=== PATIENT | female | born 1995 | race Caucasian/White ===

== ENCOUNTER 2019-02-24 21:49 | Emergency (ER) | payer BC ==
--- NOTE | 2019-02-24 23:47 | ED ---
Abdominal Pain/Female - HPI Summary HPI Summary: Patient with history of endometriosis complains of vaginal bleeding, clots and lower abdominal cramping 2 weeks. Patient states symptoms are similar to prior episodes of endometriosis but are more intense this time. Patient denies fever, cough, sore throat, CP, SOB, N/V/D, change in urine, change in BM, vaginal pain. Abdominal surgical history is none. Medical history is endometriosis. - History of Current Complaint Chief Complaint: EDVaginalBleeding Stated Complaint: HEAVY BLEEDING/CRAMPING PER PT Time Seen by Provider: 02/24/19 23:30 Hx Obtained From: Patient Onset/Duration: Gradual Onset, Lasting Weeks Timing: Intermittent Episode Lasting Severity Initially: Severe Severity Currently: Severe Pain Intensity: 8 Pain Scale Used: 0-10 Numeric Location: Discrete At: RLQ, Discrete At: LLQ, Suprapubic Radiates: No Character: Burning Aggravating Factor(s): Nothing Alleviating Factor(s): OTC Analgesics Associated Signs and Symptoms: Positive: Vaginal Bleeding Allergies/Adverse Reactions: Allergies Allergy/AdvReac Type Severity Reaction Status Date / Time ibuprofen Allergy Bleeding Verified 02/24/19 21:53 Home Medications: Home Medications Ketorolac TAB * [Toradol TAB *] 25 mg PO DAILY PRN 02/24/19 [History Confirmed 02/24/19] Omeprazole 20 mg PO BID PRN 02/24/19 [History Confirmed 02/24/19] traZODone TAB* [Desyrel TAB*] 100 mg PO BEDTIME 02/24/19 [History Confirmed ] PMH/Surg Hx/FS Hx/Imm Hx Endocrine/Hematology History: Denies: Hx Anticoagulant Therapy Cardiovascular History: Denies: Hx Pacemaker/ICD History: Denies: Hx Dialysis Sensory History: Denies: Hx Eye Prosthesis Opthamlomology History: Denies: Hx Legally Blind EENT History: Denies: Hx Deafness Neurological History: Denies: Hx Dementia Infectious Disease History: No Infectious Disease History: Denies: Traveled Outside the [place] in Last 30 Days - Family History Known Family History: Positive: Non-Contributory - Social History Alcohol Use: Occasionally Hx Substance Use: No Hx Tobacco Use: No Review of Systems Constitutional: Negative Eyes: Negative ENT: Negative Cardiovascular: Negative Respiratory: Negative Positive: Abdominal Pain Genitourinary: Negative Musculoskeletal: Negative Skin: Negative Neurological: Negative Psychological: Normal All Other Systems Reviewed And Are Negative: Yes Physical Exam - Summary Physical Exam Summary: Tenderness to palpation along left lower quadrant, suprapubic area and right lower quadrant. Abdominal exam otherwise unremarkable. Triage Information Reviewed: Yes Vital Signs On Initial Exam: Initial Vitals Temp Pulse Resp BP Pulse Ox 98.2 F 92 18 140/97 98 02/24/19 21:52 02/24/19 21:52 02/24/19 21:52 02/24/19 21:52 02/24/19 21:52 Vital Signs Reviewed: Yes Appearance: Positive: Well-Appearing Skin: Positive: Warm Head/Face: Positive: Normal Head/Face Inspection Eyes: Positive: Normal Neck: Positive: Supple Respiratory/Lung Sounds: Positive: Clear to Auscultation Cardiovascular: Positive: Normal Abdomen Description: Positive: Other: Musculoskeletal: Positive: Normal Neurological: Positive: Normal Psychiatric: Positive: Normal AVPU Assessment: Alert - Shirley Coma Scale Best Eye Response: 4 - Spontaneous Best Motor Response: 6 - Obeys Commands Best Verbal Response: 5 - Oriented Coma Scale Total: 15 Diagnostics - Vital Signs Vital Signs Temp Pulse Resp BP Pulse Ox 02/24/19 21:52 98.2 F 92 18 140/97 98 - Laboratory Result Diagrams: 02/24/19 23:52 02/24/19 23:52 Lab Statement: Any lab studies that have been ordered have been reviewed, and results considered in the medical decision making process. Abdominal Pain Fem Course/Dx - Course Course Of Treatment: 18Patient with history of endometriosis complains of vaginal bleeding, clots and lower abdominal cramping 2 weeks. Patient states symptoms are similar to prior episodes of endometriosis but are more intense this time. Patient denies fever, cough, sore throat, CP, SOB, N/V/D, change in urine, change in BM, vaginal pain. Abdominal surgical history is none. Medical history is endometriosis. Vital signs within normal limits. WBC 12.9. CRP 18. Labs otherwise unremarkable. While waiting for ultrasound to arrive , patient decided to defer imaging at this time. Patient from [facility], states she wants to drive home tonight. Will follow-up with her [employer] tomorrow. Patient signed out AMA. - Diagnoses Provider Diagnoses: Vaginal bleeding, Abdominal pain, Elevated serum hCG Discharge ED - Sign-Out/Discharge Documenting (check all that apply): Patient Departure Patient Received Moderate/Deep Sedation with Procedure: No - Discharge Plan Condition: Stable Disposition: AGAINST MEDICAL ADVICE Referrals: No Primary Care Phys,NOPCP [Primary Care Provider] - Additional Instructions: Follow-up with your [employer] later today. Or go to the ED when you get home for any concerning symptoms. - Billing Disposition and Condition Condition: STABLE Disposition: Against Medical Advice - Attestation Statements Provider Attestation: I was available for consult. This patient was seen by the YESSENIA. The patient was not presented to, seen by, or examined by me. Jordan Houser MD
[2019-02-24 23:58] LABS: Hematocrit 38 % (35-47); Hemoglobin 12.5 g/dL (12.0-16.0); Mean Corpuscular HGB Conc 33 g/dL (31-36); Mean Corpuscular Hemoglobin 27 pg (27-31); Mean Corpuscular Volume 82 fL (80-97); Platelet Count 306 10^3/uL (150-450); Red Blood Count 4.59 10^6 /uL (3.70-4.87); Red Cell Distribution Width 15 % (10-15); White Blood Count 12.9 10^3/uL (3.5-10.8)
[2019-02-25 00:15] LABS: ALT 23 U/L (7-52); Albumin 4.1 g/dL (3.2-5.2); Albumin/Globulin Ratio 1.6 (1-3); Alkaline Phosphatase 74 U/L (34-104); BUN/Creatinine Ratio 19.2 (8-20); Blood Urea Nitrogen 14 mg/dL (6-24); C Reactive Protein 18.82 mg/L (<8.01); CO2 Carbon Dioxide 25 mmol/L (22-32); Chloride 106 mmol/L (101-111); EGFR African American 119.5 (>60); EGFR Non-African American 98.8 (>60); Globulin 2.5 g/dL (2-4); Glucose 95 mg/dL (70-100); Sodium 138 mmol/L (135-145); Total Protein 6.6 g/dL (6.4-8.9)
[2019-02-25 00:22] LABS: HCG Pregnancy 8.31 mIU/mL
[2019-02-25 00:37] LABS: Anion Gap 7 mmol/L (2-11)
[2019-02-25 00:42] LABS: Urine Appearance Clear; Urine Bacteria Absent (Absent); Urine Bilirubin Negative (Negative); Urine Blood 2+ (Negative); Urine Color Yellow; Urine Glucose Negative (Negative); Urine Ketones Negative (Negative); Urine Nitrite Negative (Negative); Urine Protein Negative (Negative); Urine Red Blood Cell Trace(0-2/hpf) (Absent); Urine Specific Gravity 1.029 (1.010-1.030); Urine Squamous Epithelial Cell Present (Absent); Urine Urobilinogen Negative (Negative); Urine White Blood Cell Trace(0-5/hpf) (Absent)
[2019-02-25 00:57] VITALS: BP 133/89
[2019-02-25 00:59] LABS: ABS Basophils 0.1 10^3/ul (0-0.2); ABS Eosinophils 0.2 10^3/ul (0-0.6); ABS Lymphocytes 3.9 10^3/ul (1.0-4.8); ABS Monocytes 0.9 10^3/ul (0-0.8); ABS Neutrophils 7.8 10^3/ul (1.5-7.7); Eosinophil % 1.2 %; Lymphocyte % 30.5 %; Nucleated Red Blood Cells % 0.1
== END 2019-02-25 00:59 | disposition left against medical advice (07) ==
LOC: ED 21:49
DX: N93.9 Abnormal uterine and vaginal bleeding, unspecified (principal); Z53.21 Procedure and treatment not carried out due to patient leaving prior to being seen by health care provider
CPT/HCPCS: 36415; 80053; 81003; 81015; 84702; 85025; 86140; 87086; 99282